=== PATIENT | female | born 1990 | race Caucasian/White ===

== ENCOUNTER 2016-06-30 18:37 | Emergency (ER) | payer OTHER ==
[~2016-06-30] VITALS: Ht 157.5 cm; Wt 92.7 kg
[2016-06-30] MEDS ORDERED: FLEXERIL10 MG PO (19:06)
[2016-06-30] MEDS ORDERED: NAPROSYN500 MG PO (19:06)
[2016-06-30 19:28] VITALS: BP 145/93
== END 2016-06-30 19:30 | disposition home or self-care (01) ==
LOC: EME 18:37
DX: T22.012A Burn of unspecified degree of left forearm, initial encounter (principal); W22.10XA Striking against or struck by unspecified automobile airbag, initial encounter; S16.1XXA Strain of muscle, fascia and tendon at neck level, initial encounter; M25.522 Pain in left elbow; M25.521 Pain in right elbow; H92.01 Otalgia, right ear; V49.40XA Driver injured in collision with unspecified motor vehicles in traffic accident, initial encounter
CPT/HCPCS: 99281; 99283